=== PATIENT | female | born 1955 | race Caucasian/White ===

== ENCOUNTER 2017-11-14 18:49 | Emergency (ER) | payer OTHER ==
--- NOTE | 2017-11-14 18:57 | ED ANIMAL BITE/WOUND CHECK ---
History of Present Illness General Chief Complaint: Animal/Insect Bite Stated Complaint: "STUNG BY 200 BEES" Source: patient Exam Limitations: no limitations Vital Signs & Intake/Output Vital Signs & Intake/Output Vital Signs Date Time Temp Pulse Resp B/P B/P Pulse O2 O2 Flow FiO2 Mean Ox Delivery Rate 11/14 2022 99.0 72 18 132/84 100 Room Air 11/14 2020 Room Air 11/14 1855 98.4 105 19 138/80 96 Room Air ED Intake and Output 11/15 0000 11/14 1200 Intake Total 0 Output Total Balance 0 Intake, Oral 0 Allergies Coded Allergies: No Known Allergies (11/14/17) Reconcile Medications Prednisone 50 MG TABLET 1 TAB PO DAILY allergic reaction Triage Note: PT TO ED S/P BEING STUNG BY APPROX 2 DOZEN BEES WHILE WORKING IN HER MOTHERS YARD. DENIES SOB OR AIRWAY SWELLING. Triage Nurses Notes Reviewed? yes Onset: Abrupt Duration: minute(s): Timing: single episode today HPI: 62-year-old female comes into the emergency room for further evaluation after being stung by multiple bees. Patient reports she was in the backyard and she was doing yardwork when she had a beehive in the ground and she got warmed and stung multiple times in multiple areas. She has never been stung before and denies any history of anaphylaxis. Denies any tongue swelling. She has pain over to the areas where she was stung denies any difficulty breathing. She comes in for further evaluation. (Mio Nicole) Past History Travel History Traveled to [place] past 21 day No Medical History Any Pertinent Medical History? none Surgical History Surgical History: non-contributory Psychosocial History What is your primary language Yi Family History Hx Contributory? No (Mio Nicole) Review of Systems Review of Systems Constitutional: Reports: no symptoms. EENTM: Reports: no symptoms. Respiratory: Reports: no symptoms. Cardiovascular: Reports: no symptoms. GI: Reports: no symptoms. Genitourinary: Reports: no symptoms. Musculoskeletal: Reports: no symptoms. Skin: Reports: no symptoms. Neurological/Psychological: Reports: no symptoms. Hematologic/Endocrine: Reports: no symptoms. Immunologic/Allergic: Reports: see HPI. All Other Systems: Reviewed and Negative (Mio Nicole) Physical Exam Physical Exam General Appearance: well developed/nourished, mild distress Head: atraumatic Eyes: Bilateral: normal appearance. Ears, Nose, Throat: normal ENT inspection, hearing grossly normal, No angioedema Neck: normal inspection Respiratory: no respiratory distress Back: normal inspection Extremities: normal range of motion Neurologic/Psych: awake, alert, oriented x 3, normal mood/affect Skin: intact, normal color, warm/dry, Multiple areas of erythema/welts and swelling secondary to bee stings (Mio Nicole) Progress Differential Diagnosis: abscess, cellulitis, joint infection, tenosysnovitis, anaphylaxis,, allergic reaction, Plan of Care: Current Medications Sig/Chad Start time Last Medication Dose Stop Time Status Admin Diphenhydramine HCl 50 MG ONCE ONE 11/14 1899 UNVr (Benadryl) 11/14 1900 Prednisone 60 MG ONCE ONE 11/14 1899 UNVr 11/14 1900 Comments: 11/14/2017 11:03:20 PM Patient was observed for 2 hours in the emergency room and she feels fine. There was no impending anaphylaxis. Patient sent home on prednisone. Return if any other concerns worsening symptoms. She understands and agrees with plan of care. (Mio Nicole) Departure Departure Disposition: HOME OR SELF CARE Condition: Stable Clinical Impression Primary Impression: Bee sting Additional Instructions: Take prednisone and Benadryl as prescribed. Follow-up with primary care doctor as needed. Return if any concerns worsening symptoms. Please go over all results of today's visit with your primary care doctor. Contact your primary care doctor to let them know you were here in the emergency room. There may be nonspecific findings which may not be related to your visit today here in the emergency room but may require further evaluation and chronic monitoring by your primary care doctor. If you had a laceration today the chance of foreign body always remains. You should follow-up with your primary care doctor for recheck in 3-5 days for a wound check. If you had an x-ray done there is a chance that a fracture could have been missed on initial read and you should follow-up with your primary care doctor for repeat x-rays if symptoms persist. If your blood pressure was elevated here in the emergency room please have rechecked by [facility] primary care doctor within the next 48. If you were prescribed a narcotic here in the emergency room or any type of controlled substances you're not allowed to drive while taking this medication or operate any type of heavy machinery. Narcotics can make you feel lightheaded dizziness nausea and can cause constipation. You may need to lease picker a stool softener. Thank you for choosing [facility] emergency room. Please return to the emergency room immediately if you have any other concerns worsening of symptoms. Departure Forms: Customer Survey General Discharge Information Prescriptions: Current Visit Scripts Prednisone 1 TAB PO DAILY #4 TAB (Mio Nicole) PA/AIRPORT LOCATION MANAGER Co-Sign Statement Statement: ED Attending supervision documentation- [] I saw and evaluated the patient. I have also reviewed all the pertinent lab results and diagnostic results. I agree with the findings and the plan of care as documented in the PA's/AIRPORT LOCATION MANAGER's documentation. [x] I have reviewed the ED Record and agree with the PA's/AIRPORT LOCATION MANAGER's documentation. [] Additions or exceptions (if any) to the PAs/AIRPORT LOCATION MANAGER's note and plan are summarized below: [] (Faheem LANDERS,Yaya Mercado)
[2017-11-14 20:23] VITALS: BP 132/84
[2017-11-14] MEDS ORDERED: PREDNISONE50 M1 PO (20:31)
== END 2017-11-14 20:37 ==
LOC: ERH 18:49
DX: T14.8XXA Other injury of unspecified body region, initial encounter (principal); W57.XXXA Bitten or stung by nonvenomous insect and other nonvenomous arthropods, initial encounter